=== PATIENT | male | born 1940 | race Caucasian/White ===

== ENCOUNTER 2016-10-22 11:02 | Emergency (ER) | payer MEDICARE, OTHER ==
[~2016-10-22 11:02] MED LIST: ALLOPURINOL100 MG PO; ASPIR 8181 M1 PO; ASPIR 8181 MG PO; BISOPROLOL FUMA10 M1 PO; CALCIUM 500 +1 EAC9 PO; CYCLOBENZAPRINE5 M1 PO; EQL FISH OIL 1,1 CA1 PO; EQL FISH OIL 1,1 CAP PO; EQL FISH OIL 11 EAC2 PO; FINASTERIDE5 MG PO; FISH OIL 1,0001 EAC6 PO; FLOMAX0.4 MG PO; IBUPROFEN800 M1 PO; IBUPROFEN800 MG PO; LIPITOR40 MG PO; LIPITOR80 M1 PO; LISINOPRIL-HCT1 EAC1 PO; LISINOPRIL-HCTZ PO; MAG DELAY64 M1 PO; MAG6464 MG PO; MULTIVITAMIN1 TAB PO; MULTIVITAMINS1 EAC6 PO; NEURONTIN300 M1 PO; OMEPRAZOLE40 M2 PO; PRILOSEC OTC20 M1 PO; PRILOSEC40 M1 PO; PRILOSEC40 MG PO; PROSCAR5 M1 PO; TYLENOL325 M2 PO; VITAMIN D1000 UNI2 PO; ZEBETA5 M2 PO; ZEBETA5 MG PO; ZYLOPRIM100 M1 PO; [UNRECOGNIZED DRUG - OTHER] PO
[2016-10-22] MEDS ORDERED: CYMBALTA20 M1 PO (11:19)
[2016-10-22] MEDS ORDERED: MELATONIN5 M6 PO (11:22)
[2016-10-22] MEDS ORDERED: DOXEPIN HCL10 M1 PO (12:29)
[2016-10-22] MEDS ORDERED: ULTRAM50 M1 PO (12:29)
[2016-12-03] MEDS ORDERED: PROBIOTIC1 EAC8 PO (13:12)
[2016-12-03] MEDS ORDERED: BETAPACE80 M2 PO ×2 (13:12→13:14)
[2016-12-10] MEDS ORDERED: PRINIVIL20 M1 PO (13:50)
[2016-12-10] MEDS ORDERED: IBUPROFEN600 M1 PO (13:52)
[2016-12-10] MEDS ORDERED: TYLENOL325 M2 PO (13:52)
== END 2016-10-22 13:26 ==
LOC: EDMED 11:02
DX: S40.011A Contusion of right shoulder, initial encounter (principal); I25.10 Atherosclerotic heart disease of native coronary artery without angina pectoris; Z88.5 Allergy status to narcotic agent; Z79.82 Long term (current) use of aspirin; W17.89XA Other fall from one level to another, initial encounter; Y92.019 Unspecified place in single-family (private) house as the place of occurrence of the external cause